=== PATIENT | female | born 1960 | race Caucasian/White ===

== ENCOUNTER → 2016-12-31 | Outpatient (CLI) | payer BC ==
[2016-12-26 18:42] VITALS: BP 170/73
[~2016-12-31] MED LIST: ACET325T21 PO; ACET325T9 PO; ACID1TAB11 PO; CALC300T5 PO; CEPH-264 PO; CIPR500T PO; CYCL10TA2 PO; Cefpodoxime Proxetil PO; FURO-69 PO; HYDR-971 PO; IOHEXOL 240 MG/ML 50ML VIAL. PO ONE; IOHEXOL 300 MG/ML 100ML VIAL. IV ONE; MAGN2400 PO; METO25TA4 PO; METR250T PO; MULT1TAB52 PO; NAPR500T PO; OMEP20TA PO; ONDA-35 PO; OXYC5TAB PO; PANT40TA5 PO; PIPE3.377 IV; POLY17PO5 PO; TIZA4TAB PO; TRAM50TA PO
--- NOTE | 2016-12-31 11:18 | KCIC ---
PROCEDURE CT abdomen and pelvis with and without contrast. HISTORY Adenocarcinoma. Vaginal Bleeding, low pelvic pain. TECHNIQUE Helical CT imaging of the abdomen and pelvis performed after oral contrast. Repeat acquisition is performed after 100 cc of Omnipaque 300 IV contrast. PQRS: One or more the following individualized dose reduction techniques were utilized for the study: 1. Automated exposure control. 2. Adjustment of the mA and/or kV according to patient size. 3. Use of iterative reconstruction technique. COMPARISON CT abdomen pelvis without contrast October 26, 2014. FINDINGS Small calcified right hilar lymph nodes. Compressive atelectasis right lower lobe just above the hemidiaphragm. The cardiac size is normal. Elevation of right hemidiaphragm. Cholecystectomy. There is a 1 centimeter ill-defined hypodensity in the anterior inferior spleen, image 30. Finding is imperceptible on the precontrast images. The liver, pancreas, adrenal glands, and abdominal aortic caliber are normal. Kidneys enhance symmetrically without hydronephrosis. There is a 2 millimeter nonobstructing left renal calculus. Stomach unremarkable. No dilated small bowel. Diverticulosis of the descending colon without inflammation. Oral contrast reaches the ascending colon. Appendix surgically absent. No abdominal adenopathy or free fluid. Abnormal endocervical mass. The mass is hypodense, there is peripheral hyperenhancement. Urinary bladder is decompressed, no obvious abnormality. No pelvic free fluid. No pelvic fat induration is seen. No adenopathy is identified. Bones unremarkable. IMPRESSION 1. Endocervical mass, patient's known malignancy. 2. No pelvic adenopathy or free fluid. 3. There is an indeterminate small hypodensity in the spleen. Finding could be further evaluated with MR abdomen with and without contrast, as clinically warranted. 4. Tiny nonobstructing left renal calculus. 5. Distal colon diverticulosis without evidence of diverticulitis. Electronically signed by: Miah Jessica MD (Dec 31, 2016 11:16:59)
== END | disposition home or self-care (01) ==
LOC: KCIC CT 07:53
PROVIDERS: ATTEND Obstetrics & Gynecology
DX: C80.1 Malignant (primary) neoplasm, unspecified (principal); N93.9 Abnormal uterine and vaginal bleeding, unspecified; R10.2 Pelvic and perineal pain
CPT/HCPCS: 74178; Q9966; Q9967